=== PATIENT | female | born 1955 | race American Indian/Alaskan Native ===

== ENCOUNTER 2017-02-02 09:59 | Day surgery (SDC) | payer OTHER ==
[~2017-02-02 09:59] MED LIST: ANCEF/STERILE WATER 2 GM/20 ML 2 GM/20 ML SYRINGE IV SCH; HEPARIN 10,000 UNITS/10 ML IV ONE; HEPARIN SUB-Q SCH; NACL 0.9% 250ML IV ONE; NACL P/F VIAL (10 ML) INFILTRATI ONE; ceFAZolin 2 GM in NACL 0.9% 100 ML IV ONE
[2017-02-02] MEDS ORDERED: ZOFRAN ONE (10:08)
[2017-02-02] MEDS ORDERED: DECADRON ONE (10:08)
[2017-02-02] MEDS ORDERED: XYLOCAINE MPF 2% ONE (10:08)
[2017-02-02] MEDS ORDERED: SUBLIMAZE ONE (10:09)
[2017-02-02] MEDS ORDERED: DIPRIVAN 10 MG/ML IV ONE (10:09)
--- NOTE | 2017-02-02 10:38 | Anesthesia Consultation ---
Anesthesia Consult and Med Hx Date of service: 02/02/17 - Airway ROM Head & Neck: Adequate Mental/Hyoid Distance: Adequate Mallampati Class: Class II Intubation Access Assessment: Probably Good - Pulmonary Exam CTA: Yes - Cardiac Exam Cardiac Exam: RRR - Pre-Operative Health Status ASA Pre-Surgery Classification: ASA3 Proposed Anesthetic Plan: General - Pulmonary Hx Smoking: Yes (CIGARETTES 1 PPD X 10 YRS, QUIT 35 YRS AGO) Hx Sleep Apnea: No - Cardiovascular System Hx Hypertension: Yes (FOR 33 YRS, DR. CISNEROS- PCP) Hx Heart Murmur: Yes - Central Nervous System Hx Seizures: No CVA: No Hx Psychiatric Problems: No - Endocrine Hx Renal Disease: Yes (NOT YET ON DIALYSIS) Hx End Stage Renal Disease: Yes Hx Cirrhosis: No Hx Liver Disease: No Hx Non-Insulin Dependent Diabetes: Yes - Hematic Hx Anemia: Yes - Other Systems Hx Cancer: No Hx Obesity: Yes (morbid, BMI > 40)
--- NOTE | 2017-02-02 10:43 | Anesthesia Day of Surgery ---
Anesthesia Day of Surgery - Day of Surgery Patient Examined: Yes Patient H&P Reviewed: Yes Patient is NPO: Yes Beta Blockers: Yes
[2017-02-02] MEDS ORDERED: NACL 0.9% 1000 ML 1,000 ML IV SCH (11:00)
[2017-02-02] MEDS ORDERED: VERSED IV NR (11:00)
[2017-02-02] MEDS ORDERED: PEPCID PO NR (11:00)
[2017-02-02 11:06] LABS: Hematocrit 27.2 % (30.3-42.9); Hemoglobin 8.8 gm/dl (10.1-14.3); Mean Corpuscular HGB Conc 33 % (30-34); Mean Corpuscular Hemoglobin 26 pg (28-32); Mean Corpuscular Volume 81 fl (79-97); Platelet Count 246 K/mm3 (140-440); Red Blood Count 3.36 M/mm3 (3.65-5.03); Red Cell Distribution Width 17.5 % (13.2-15.2); White Blood Count 4.7 K/mm3 (4.5-11.0)
[2017-02-02] MEDS ORDERED: MARCAINE 0.25% INFILTRATI ONE ×4 (11:18→12:21)
[2017-02-02] MEDS ORDERED: NACL 0.9% 250ML 250 ML ONE (11:19)
[2017-02-02] MEDS ORDERED: HEPARIN 10,000 UNITS/10 ML ONE (11:19)
[2017-02-02] MEDS ORDERED: NACL P/F VIAL (10 ML) 10 ML ONE (11:19)
[2017-02-02 11:23] LABS: BUN/Creatinine Ratio 10.95; Calcium 9.8 mg/dL (8.4-10.2); Chloride 101.6 mmol/L (98-107)
[2017-02-02] MEDS ORDERED: ePHEDrine SULFATE ONE (12:27)
[2017-02-02] MEDS ORDERED: DILAUDID ONE (12:35)
[2017-02-02] MEDS ORDERED: NACL 0.9% 250ML IV ONE (12:41)
[2017-02-02] MEDS ORDERED: HEPARIN 10,000 UNITS/10 ML IV ONE (12:41)
[2017-02-02] MEDS ORDERED: NACL P/F VIAL (10 ML) INFILTRATI ONE (12:57)
--- NOTE | 2017-02-02 13:03 | Post Operative Note ---
Pre-op diagnosis: End Stage REnal failure Post-op diagnosis: same Findings: Redundant fat ladden omentum Procedure: Laparoscopic PD cath insertion, omentopexy Anesthesia: VEENAA Surgeon: STEPHEN OAKES Chain Hooker: SAMM MAYS Estimated blood loss: minimal Pathology: none Condition: stable Disposition: PACU
--- NOTE | 2017-02-02 13:07 | Discharge Summary ---
Short Stay Discharge Plan Weight Bearing Status: Full Weight Bearing Diet: regular Wound: keep clean and dry Follow up with: GERALD CISNEROS MD [Primary Care Provider] - 7 Days Prescriptions: HYDROcodone/APAP 5-325 [[place] 5-325 mg TAB] 1 each PO Q4HR PRN #20 tablet PRN Reason: Pain Ondansetron [Zofran TAB] 4 mg PO Q8HR PRN #20 tablet PRN Reason: Nausea traMADol [Ultram 50 MG tab] 50 mg PO Q4HR PRN #20 tablet PRN Reason: Pain
[2017-02-02 15:30] VITALS: BP 159/78
--- NOTE | 2017-02-02 22:02 | Operative Report ---
PREOPERATIVE DIAGNOSIS: End-stage renal failure. POSTOPERATIVE DIAGNOSIS: End-stage renal failure. OPERATIVE PROCEDURE: Laparoscopic peritoneal dialysis catheter insertion and laparoscopic omentopexy. ANESTHESIA: General endotracheal. SURGEON: Fritz Patino MD ASSOCIATE PASTOR: Dr. Damon Crowder. INDICATIONS: A 61-year-old female patient with a BMI of 45 has developed end-stage renal failure and request peritoneal dialysis catheter. FINDINGS: Omentum was redundant and extremely fat ladden. No abdominal wall inguinal hernia evident. Visualized part of the liver and bowel loops appeared normal. No ascites was noted. DESCRIPTION OF PROCEDURE: After satisfactory induction of general endotracheal anesthesia, abdomen was prepped and draped. A right mid abdominal incision was made several centimeters away from the umbilicus and a Veress needle was inserted in the peritoneal cavity. After adequate carbon dioxide insufflation up to 15 mmHg, a 5 mm trocar was inserted, through this a 5 mm 30-degree angle scope was placed and under direct visualization, the midline epigastric 5 mm port was placed. Above findings were noted. Omentum was deflected to the upper abdomen. Below the left costal margin, a small incision was made and the suture passer needle was inserted with a 0 Vicryl tie and three slips of omentum were passed through the needle and the Vicryl tie was pulled up and the omentum was fixed to the left upper quadrant. No bleeding was noted. A 62 cm double cuffed coiled Tenckhoff catheter was soaked in saline solution for several minutes. Site of insertion was measured. This was on the left side of the abdominal wall just above the umbilicus. After infiltrating local anesthetic, a 3 cm transverse incision was made and a fair amount of subcutaneous tissue was divided with minimal bleeding controlled by cautery. A small opening was made in the anterior rectus fascia. Under laparoscopic visualization, a Step One trocar needle with a sheath was inserted and counterpunctured inferiorly in the midline. The needle was removed. The sheath was dilated using a dilator under trocar and the trocar was removed. A catheter guide was inserted to the PD catheter and the PD catheter was inserted into the peritoneal cavity under laparoscopic visualization. The coiled aspect of the catheter was placed over the bowel loops in the pelvis. The deeper cuff was placed between the parietal peritoneum and the anterior rectus fascia. Superficial cuff was placed in the subcutaneous plane and the catheter was brought out above and lateral to the main incision without any kink or twist. Titanium adapters and transistors were attached to the catheter. The catheter was flushed and aspirated which is confirmed by laparoscopy. It was aspirating well. About 150 mL of dilute heparin was instilled through the catheter and later was flushed with 20 mL saline containing 5000 units of heparin. Desufflation was done and the trocars were removed under direct visualization. The main incision was closed in 2 layers with 3-0 Vicryl and 4-0 Monocryl. The other incisions were closed with 4-0 Monocryl. Bulky dressings were placed over the main incision on the exit site after placing a Biopatch and the tail end of the transfer set was left outside for it to be flushed in the dialysis unit and a Betadine plug was placed. There was negligible blood loss. She tolerated the procedure well, extubated and transferred to postanesthesia care unit in satisfactory condition. JOB# [id number] FLAVIA/IVELISSE
== END 2017-02-02 15:38 | disposition home or self-care (01) ==
LOC: OR 09:59
PROVIDERS: ATTEND Surgery
DX: E11.22 Type 2 diabetes mellitus with diabetic chronic kidney disease (principal); I12.0 Hypertensive chronic kidney disease with stage 5 chronic kidney disease or end stage renal disease; N18.6 End stage renal disease; D64.9 Anemia, unspecified; M10.9 Gout, unspecified; E66.01 Morbid (severe) obesity due to excess calories; Z68.41 Body mass index [BMI] 40.0-44.9, adult; Z90.710 Acquired absence of both cervix and uterus; Z79.899 Other long term (current) drug therapy; Z84.1 Family history of disorders of kidney and ureter; Z87.891 Personal history of nicotine dependence
CPT/HCPCS: 36415; 49324; 49326; 80048; 82962; 85027; C1750; J0690; J1170; J1644; J2250; J2405; J2704; J3010; J7030; J7050; J1100

== ENCOUNTER 2017-05-03 05:57 | Outpatient (CLI) | payer MEDICARE, OTHER ==
--- NOTE | 2017-05-03 10:11 | Cat Scan Report ---
CT abdomen and pelvis without contrast: Abdominal pain. Transverse images are obtained from the low chest to the ischium with coronal and sagittal 2-D reformatted images. Oral contrast ministered. There is free peritoneal air and a large amount of peritoneal fluid. There is a percutaneous catheter in the pelvis entering from the left lower quadrant. There appears to be soft tissue edema around the catheter. The Mild perinephric stranding is identified. A nonobstructing 8mm calculus noted in the left kidney. There is a low-attenuation 15 mm exophytic mass laterally on the left. The small bowel is generally well opacified and unremarkable. The colon is not opacified but appears generally unremarkable. Abdominal aorta is normal in size and contour. There is no obvious adenopathy appreciated. Degenerative spondylosis and discogenic changes are predominantly noted at L5-S1 but also a couple of levels in the lower thoracic spine. Impressions: 1. The patient appears to be on peritoneal dialysis explaining the free air and significant peritoneal fluid. 2. No obvious explanation for abdominal pain. 3. Nonobstructing left renal calculus and small left renal cyst. 4. Segmental degenerative spine changes.
== END 2017-05-03 05:58 | disposition home or self-care (01) ==
LOC: CT 05:57
PROVIDERS: ATTEND Surgery
DX: N20.0 Calculus of kidney (principal); N28.1 Cyst of kidney, acquired; M47.897 Other spondylosis, lumbosacral region; R60.0 Localized edema; I12.0 Hypertensive chronic kidney disease with stage 5 chronic kidney disease or end stage renal disease; N18.6 End stage renal disease; E11.22 Type 2 diabetes mellitus with diabetic chronic kidney disease; D63.1 Anemia in chronic kidney disease; E78.00 Pure hypercholesterolemia, unspecified; Z87.891 Personal history of nicotine dependence
CPT/HCPCS: 74176

== ENCOUNTER 2017-11-16 07:23 | Day surgery (SDC) | payer MEDICARE ==
[~2017-11-16 07:23] MED LIST changes: +ANCEF/STERILE WATER 2 GM/20 ML 2 GM/20 ML SYRINGE IV NR; -ANCEF/STERILE WATER 2 GM/20 ML 2 GM/20 ML SYRINGE IV SCH; -HEPARIN SUB-Q SCH; +MARCAINE 0.5% INFILTRATI ONE; +NACL 0.9% 1000 ML 1,000 ML IV SCH; -NACL 0.9% 250ML IV ONE; +NACL 0.9% 500 ML IRRIGATION ONE; +NACL 0.9% IR ONE; -NACL P/F VIAL (10 ML) INFILTRATI ONE; +XYLOCAINE 2% INFILTRATI ONE; -ceFAZolin 2 GM in NACL 0.9% 100 ML IV ONE
--- NOTE | 2017-11-16 08:14 | Anesthesia Day of Surgery ---
Anesthesia Day of Surgery - Day of Surgery Patient Examined: Yes Patient H&P Reviewed: Yes Patient is NPO: Yes Beta Blockers: Yes
--- NOTE | 2017-11-16 08:14 | Anesthesia Consultation ---
Anesthesia Consult and Med Hx Date of service: 11/16/17 - Airway Anesthetic Teeth Evaluation: Good ROM Head & Neck: Adequate Mental/Hyoid Distance: Adequate Mallampati Class: Class II Intubation Access Assessment: Probably Good - Pulmonary Exam CTA: Yes - Cardiac Exam Cardiac Exam: RRR - Pre-Operative Health Status ASA Pre-Surgery Classification: ASA4 Proposed Anesthetic Plan: General - Pulmonary Hx Smoking: Yes (quit 35 years ago, heavy smoker for 10years) Hx Sleep Apnea: No (ABELARDO PRE SCREEN HIGH RISK) - Cardiovascular System Hx Hypertension: Yes (33 years) Hx Heart Murmur: Yes - Central Nervous System Hx Seizures: No CVA: No Hx Psychiatric Problems: No - Endocrine Hx Renal Disease: Yes Hx End Stage Renal Disease: Yes (on HD T/T/S. last HD on wednesday) Hx Cirrhosis: No Hx Liver Disease: No Hx Non-Insulin Dependent Diabetes: Yes - Hematic Hx Anemia: Yes - Other Systems Hx Alcohol Use: No Hx Substance Use: No Hx Cancer: No Hx Obesity: Yes - Additional Comments Anesthesia Medical History Comments: HLD, anemia. Informed consent obtained
[2017-11-16 08:44] LABS: Calcium 8.2 mg/dL (8.4-10.2)
[2017-11-16] MEDS ORDERED: ANCEF/STERILE WATER 2 GM/20 ML 2 GM/20 ML SYRINGE IV SCH (09:00)
[2017-11-16 09:25] LABS: Hematocrit 27.7 % (30.3-42.9); Hemoglobin 8.8 gm/dl (10.1-14.3); Mean Corpuscular HGB Conc 32 % (30-34); Mean Corpuscular Hemoglobin 28 pg (28-32); Mean Corpuscular Volume 87 fl (79-97); Platelet Count 208 K/mm3 (140-440); Red Blood Count 3.18 M/mm3 (3.65-5.03); Red Cell Distribution Width 22.2 % (13.2-15.2)
[2017-11-16] MEDS ORDERED: SUBLIMAZE IV PRN (09:30)
[2017-11-16] MEDS ORDERED: HEPARIN 10,000 UNITS/10 ML ONE (10:53)
[2017-11-16] MEDS ORDERED: NACL 0.9% 500 ML 500 ML ONE (10:54)
[2017-11-16] MEDS ORDERED: PROTAMINE SULFATE ONE (10:55)
[2017-11-16] MEDS ORDERED: MARCAINE 0.5% INFILTRATI ONE ×3 (10:55→12:59)
[2017-11-16] MEDS ORDERED: DIPRIVAN 10 MG/ML IV ONE ×2 (11:01→11:46)
[2017-11-16] MEDS ORDERED: SUBLIMAZE ONE (11:01)
[2017-11-16] MEDS ORDERED: VERSED ONE (11:01)
[2017-11-16] MEDS ORDERED: XYLOCAINE CARDIAC IV ONE (11:45)
[2017-11-16] MEDS ORDERED: NACL 0.9% 500 ML IRRIGATION ONE (12:09)
[2017-11-16] MEDS ORDERED: HEPARIN 10,000 UNITS/10 ML IV ONE (12:09)
[2017-11-16] MEDS ORDERED: NEO SYNEPHRINE/NS Syringe(OR USE) IV ONE (12:11)
[2017-11-16] MEDS ORDERED: XYLOCAINE 1%/ EPI 1:100,000 INFILTRATI ONE (12:12)
[2017-11-16] MEDS ORDERED: ePHEDrine SULFATE ONE (12:34)
[2017-11-16] MEDS ORDERED: NACL 0.9% IR ONE (13:01)
--- NOTE | 2017-11-16 13:23 | Operative Report ---
Operative Report Operative Report: Operative note: Date: 11/16/2017 Preoperative diagnosis: Renal failure requiring hemodialysis initiation Postoperative diagnosis: Same. Operation: creation of left brachiocephalic AV fistula Surgeon: Neha Dillon. Asst.: none Anesthesia: Gen. EBL: Minimal Findings:. patent brachial artery, no plaque Indications: 62-year-old lady with end-stage renal disease on hemodialysis initiated. Permacath came to the 4 permanent access placement. She was explained risks, benefits and alternatives of procedure and chose to proceed, signed informed consent. Operative details: The ultrasound was performed identifying cephalic vein. It was compressible is good size throughout its length. Timeout performed. Incision was made about 1 cm below elbow crease and horizontal fashion. Initially I dissected around cephalic vein mobilizing it. Brachial artery was dissected by dividing the biceps aponeurosis and taken vessel loops distally and proximally. Cephalic vein was transected distally and was ligated with sterile silk. It was irrigated with heparinized saline with olive-tipped syringe. Patient was heparinozed. Distal and proximal control of brachial artery was gained by vessel loops. Arteriotomy was created with 11 blade and extended with Tejada scissors. Anastomosis was created was running 6-0 Prolene. When the artery was unclamped, there was identified good arterial pulse and thrill in the cephalic vein. Hemostasis was achieved with electrocautery and wound was closed in 2 layers with 3-0 Vicryl and 4-0 Monocryl. Dermabond glue applied. Needle and sponge counts were correct 2. Patient tolerated procedure well and was transferred to PACU in stable condition.
--- NOTE | 2017-11-16 13:28 | Short Stay Summary ---
Short Stay Documentation Date of service: 11/16/17 - History H&P: obtained from office - Allergies and Medications Current Medications: Allergies acetaminophen [From Percocet] Adverse Reaction (Unverified 08/05/17 11:03) Unknown oxycodone HCl [From Percocet] Adverse Reaction (Verified 08/05/17 11:03) Unknown PT STATES SHE HAD HORRIBLE DREAMS, WOKE UP WITH HEART PALPITATIONS Home Medications Medication Instructions Recorded Confirmed Last Taken Type Allopurinol [Zyloprim] 100 mg PO QHS 01/27/17 11/16/17 11/15/17 History Carvedilol [Coreg] 25 mg PO BID 01/27/17 11/16/17 11/16/17 History Colchicine [Colcrys] 0.6 mg PO BID PRN 01/27/17 11/15/17 07/27/17 History Gabapentin 100 mg PO DAILY 08/05/17 11/15/17 Unknown History Linagliptin [Tradjenta] 5 mg PO DAILY 08/05/17 11/16/17 11/15/17 History HYDROcodone/APAP 5-325 [[place] 1 each PO Q4HR PRN #20 tablet 08/10/17 11/15/17 Unknown Rx 5-325 mg TAB] Ondansetron [Zofran TAB] 4 mg PO Q8HR PRN #14 tablet 08/10/17 11/15/17 Unknown Rx Metoclopramide [Reglan] 10 mg PO DAILY 11/15/17 11/15/17 Unknown History Potassium Citrate [Potassium 10 meq PO DAILY 11/15/17 11/15/17 Unknown History Citrate ER] Active Medications Fentanyl (Sublimaze) 50 mcg IV Q5MIN PRN PRN Reason: Pain , Severe (7-10) Stop: 11/16/17 16:00 Sodium Chloride (Nacl 0.9% 1000 Ml) 1,000 mls @ 42 mls/hr IV DIRECT LU Last Admin: 11/16/17 08:50 Dose: 42 mls/hr Cefazolin Sodium (Ancef/Sterile Water 2 Gm/20 Ml) 2 gm in 20 mls @ 20 mls/10 min IV PREOP LU Stop: 11/16/17 18:00 - Brief post op/procedure progress note Date of procedure: 11/16/17 Pre-op diagnosis: ESRD oon HD Post-op diagnosis: same Procedure: left AVF cration Anesthesia: GETA Findings: patent brachial artery Surgeon: REY KIM Estimated blood loss: minimal Condition: stable - Disposition Condition at discharge: Good Disposition: DC-01 TO HOME OR SELFCARE Short Stay Discharge Plan Diet: renal Wound: open to air Special Instructions: no heavy lifting Follow up with: GERALD CISNEROS MD [Primary Care Provider] - 7 Days REY KIM DO [Staff Physician] - 14 Days Prescriptions: Acetaminophen/Codeine [Tylenol /Codeine # 3 tab] 1 tab PO Q4HR PRN #20 tablet PRN Reason: Pain
[2017-11-16 13:29] LABS: Eosinophils # (Auto) 0.1 K/mm3 (0.0-0.4); Eosinophils % (Auto) 2.5 % (0.0-4.3); Monocytes # (Auto) 0.7 K/mm3 (0.0-0.8); Monocytes % (Auto) 15.3 % (0.0-7.3)
--- NOTE | 2017-11-16 13:54 | Post Anesthesia Evaluation ---
- Post Anesthesia Evaluation Patient Participated: Yes Airway Patent: Yes Stable Respiratory Function: Yes Nausea/Vomiting: No Temp > 96.8F: Yes Pain Manageable: Yes Adequeate Hydration: Yes Anesthesia Complications: No Block Receding Appropriately: Not Applicable Patient on Ventilator: No
[2017-11-16 15:01] VITALS: BP 132/65
== END 2017-11-16 07:24 | disposition home or self-care (01) ==
LOC: OR 07:23
PROVIDERS: ATTEND Surgery Vascular Surgery
DX: I12.0 Hypertensive chronic kidney disease with stage 5 chronic kidney disease or end stage renal disease (principal); E11.22 Type 2 diabetes mellitus with diabetic chronic kidney disease; N18.6 End stage renal disease; E66.9 Obesity, unspecified; Z88.5 Allergy status to narcotic agent; Z79.899 Other long term (current) drug therapy; Z87.891 Personal history of nicotine dependence; Z68.37 Body mass index [BMI] 37.0-37.9, adult; Z90.710 Acquired absence of both cervix and uterus; Z98.890 Other specified postprocedural states
CPT/HCPCS: 36415; 36821; 80048; 82962; 85025; J0690; J1644; J2001; J2250; J2370; J2704; J3010; J7030; J7040; J2720

== ENCOUNTER 2017-12-24 09:43 | Day surgery (SDC) | payer MEDICARE ==
[~2017-12-24 09:43] MED LIST changes: -ANCEF/STERILE WATER 2 GM/20 ML 2 GM/20 ML SYRINGE IV NR; +ANCEF/STERILE WATER 2 GM/20 ML IV NR; -HEPARIN 10,000 UNITS/10 ML IV ONE; -MARCAINE 0.5% INFILTRATI ONE; -NACL 0.9% 1000 ML 1,000 ML IV SCH; -NACL 0.9% 500 ML IRRIGATION ONE; -NACL 0.9% IR ONE; -XYLOCAINE 2% INFILTRATI ONE
[2017-12-24] MEDS ORDERED: NACL BACTERIOSTATIC INFILTRATI ONE (10:12)
[2017-12-24] MEDS ORDERED: DEMEROL IV PRN (10:27)
[2017-12-24] MEDS ORDERED: ZOFRAN IV PRN (10:27)
[2017-12-24 10:35] LABS: Basophils % (Auto) 0.8 % (0.0-1.8); Eosinophils # (Auto) 0.3 K/mm3 (0.0-0.4); Eosinophils % (Auto) 5.6 % (0.0-4.3); Hematocrit 37.8 % (30.3-42.9); Lymphocytes % (Auto) 17.6 % (13.4-35.0); Mean Corpuscular HGB Conc 32 % (30-34); Mean Corpuscular Hemoglobin 29 pg (28-32); Mean Corpuscular Volume 90 fl (79-97); Monocytes # (Auto) 0.6 K/mm3 (0.0-0.8); Platelet Count 223 K/mm3 (140-440); Red Blood Count 4.19 M/mm3 (3.65-5.03)
[2017-12-24 10:42] LABS: Red Cell Distribution Width 20.4 % (13.2-15.2)
[2017-12-24 10:56] LABS: Albumin 4.1 g/dL (3.9-5); Calcium 8.3 mg/dL (8.4-10.2)
[2017-12-24] MEDS ORDERED: VERSED IV NR (11:00)
[2017-12-24] MEDS ORDERED: LACTATED RINGERS 1,000 ML IV SCH ×2 (11:00)
--- NOTE | 2017-12-24 11:09 | Anesthesia Consultation ---
Anesthesia Consult and Med Hx - Airway Anesthetic Teeth Evaluation: Good ROM Head & Neck: Adequate Mental/Hyoid Distance: Adequate Mallampati Class: Class III Intubation Access Assessment: Good - Pulmonary Exam CTA: Yes - Cardiac Exam Cardiac Exam: RRR - Pre-Operative Health Status ASA Pre-Surgery Classification: ASA4 Proposed Anesthetic Plan: MAC - Pulmonary Hx Smoking: Yes (quit 35 years ago, heavy smoker for 10years) Hx Sleep Apnea: No (ABELARDO PRE SCREEN HIGH RISK) - Cardiovascular System Hx Hypertension: Yes (33 years) Hx Heart Murmur: Yes - Central Nervous System Hx Seizures: No CVA: No Hx Psychiatric Problems: No - Endocrine Hx Renal Disease: Yes Hx End Stage Renal Disease: Yes (on HD T/T/S. last HD on wednesday) Hx Cirrhosis: No Hx Liver Disease: No Hx Non-Insulin Dependent Diabetes: Yes - Hematic Hx Anemia: Yes - Other Systems Hx Alcohol Use: No Hx Substance Use: No Hx Cancer: No Hx Obesity: Yes
[2017-12-24] MEDS ORDERED: NACL 0.9% 1000 ML 1,000 ML IV SCH (11:18)
[2017-12-24] MEDS ORDERED: SUBLIMAZE ONE (12:14)
[2017-12-24] MEDS ORDERED: DIPRIVAN 10 MG/ML IV ONE (12:14)
[2017-12-24] MEDS ORDERED: MARCAINE 0.25% INFILTRATI ONE ×2 (12:17→12:22)
[2017-12-24] MEDS ORDERED: QUELICIN ONE (12:17)
[2017-12-24] MEDS ORDERED: ZOFRAN ONE (12:17)
[2017-12-24] MEDS ORDERED: XYLOCAINE MPF 2% ONE (12:17)
[2017-12-24] MEDS ORDERED: XYLOCAINE 1%/ EPI 1:100,000 INFILTRATI ONE ×2 (12:17→12:22)
[2017-12-24] MEDS ORDERED: DECADRON ONE (12:17)
[2017-12-24] MEDS ORDERED: ZEMURON IV ONE (12:17)
[2017-12-24] MEDS ORDERED: NACL 0.9% IR ONE (12:22)
[2017-12-24] MEDS ORDERED: VERSED ONE (12:27)
--- NOTE | 2017-12-24 13:13 | Post Operative Note ---
Pre-op diagnosis: Malfunctioning PD catheter Post-op diagnosis: same Findings: as above Procedure: Removal of PD catheter Anesthesia: MAC Surgeon: STEPHEN OAKES Estimated blood loss: minimal Pathology: none Condition: stable Disposition: PACU
--- NOTE | 2017-12-24 13:16 | Discharge Summary ---
Short Stay Discharge Plan Weight Bearing Status: Full Weight Bearing Diet: regular Wound: change dressing (in 2 days - february shwer daily) Follow up with: GERALD CISNEROS MD [Primary Care Provider] - 7 Days Forms: Outpatient Surgery DC Inst. Prescriptions: HYDROcodone/ACETAMINOPHEN [Hydrocodon-Acetaminophen 5-325] 1 each PO Q4-6H PRN # 20 tablet PRN Reason: Pain
[2017-12-24 13:28] VITALS: BP 143/68
--- NOTE | 2017-12-24 13:41 | Operative Report ---
PREOPERATIVE DIAGNOSIS: Malfunctioning peritoneal dialysis catheter. POSTOPERATIVE DIAGNOSIS: Malfunctioning peritoneal dialysis catheter. OPERATIVE PROCEDURE: Removal of malfunctioning peritoneal dialysis catheter. ANESTHESIA: Local 1% Xylocaine with 0.25% Marcaine and IV sedation. INDICATIONS: A 62-year-old female patient had a peritoneal dialysis catheter inserted by me that needed revision and she has been on PD for several months. However, the ultrafiltration is inadequate and she switched over to hemodialysis, so she is brought in for removal of the catheter. DESCRIPTION OF PROCEDURE: After satisfactory IV sedation, the abdomen was prepped and draped. Skin and subcutaneous tissue at the site of the previous catheter insertion was infiltrated with the local anesthetic. A 3 cm transverse incision was made and after infiltrating more local anesthetic, this was deepened down to the deeper cuff of the PD catheter. More local anesthetic was needed. The scar tissue was taken down and the intraperitoneal aspect of the catheter was removed intact. There was proteinaceous debris blocking the tail, the coiled aspect of the catheter. No pus was noted. After more local anesthetic, the adhesions around the superficial cuff were taken down and the catheter was removed. The defect in the fascia was closed with a single suture of 0 Vicryl, subcutaneous tissue with 3-0 Vicryl, and skin with 4-0 Vicryl. The exit site was covered with a Band-Aid. She tolerated the procedure well. JOB# [id number] FLAVIA/IVELISSE
== END 2017-12-24 13:52 | disposition home or self-care (01) ==
LOC: OR 09:43
PROVIDERS: ATTEND Surgery
DX: T85.691A Other mechanical complication of intraperitoneal dialysis catheter, initial encounter (principal); E11.22 Type 2 diabetes mellitus with diabetic chronic kidney disease; I12.0 Hypertensive chronic kidney disease with stage 5 chronic kidney disease or end stage renal disease; N18.6 End stage renal disease; M10.9 Gout, unspecified; E66.9 Obesity, unspecified; Z68.31 Body mass index [BMI] 31.0-31.9, adult; Z87.891 Personal history of nicotine dependence; Z88.8 Allergy status to other drugs, medicaments and biological substances; Z79.899 Other long term (current) drug therapy; Y83.2 Surgical operation with anastomosis, bypass or graft as the cause of abnormal reaction of the patient, or of later complication, without mention of misadventure at the time of the procedure
CPT/HCPCS: 36415; 49422; 80053; 82962; 85025; J0690; J2250; J2704; J3010; J7030; J0330; J1100; J2405